=== PATIENT | male | born 1950 | race Caucasian/White ===

== ENCOUNTER → 2020-07-13 16:18 | Outpatient (BNVA) | payer MEDICARE, OTHER, SELFPAY | PROVIDERS: Family Provider Emergency Medicine Emergency Medical Services; Visit Provider Nurse Practitioner | DX: S61.411A Laceration without foreign body of right hand, initial encounter (principal); S60.221A Contusion of right hand, initial encounter; W23.0XXA Caught, crushed, jammed, or pinched between moving objects, initial encounter; Z68.31 Body mass index [BMI] 31.0-31.9, adult; Z71.89 Other specified counseling | CPT/HCPCS: 73130 ==

== ENCOUNTER 2020-11-12 09:44 | Outpatient (CLI) | payer OTHER, SELFPAY ==
--- NOTE | 2020-11-12 10:15 | MR_ITS ---
WS: [id number] MRI LUMBAR SPINE NONCONTRAST HISTORY: LBP, ARTHRITIS COMPARISON: None available. TECHNIQUE: Sagittal and axial multisequence imaging is submitted. 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 Effacement of the CSF at the C5-6 level and the cord appears slightly enlarged. Mild straightening of the normal lumbar lordosis. 2 mm anterolisthesis of C3 and C4. Very mild amount of marrow edema in the pedicles of L4 and L5. Mild disc space narrowing and desiccation throughout. Conus terminates normally at L1. L1-L2: Normal. L2-L3: Normal. L3-L4: Moderate ligamentum flavum hypertrophy and bony hypertrophy encroaching into the thecal sac an d subarticular recesses. Moderate central and bilateral subarticular recess stenosis. More significan t encroachment upon the traversing RIGHT L4 nerve root. L4-L5: Diffuse annular disc bulging with a central moderate-sized disc protrusion. Disc is extruded s lightly cephalad posterior to the L4 vertebral body. mass effect upon the thecal sac. Encroachment in to the thecal sac by the disc, ligamentum flavum and facet arthritis. Moderate amount of fluid in the facet joints bilaterally. Moderate central canal stenosis and moderate to severe bilateral subarticu lar recess stenosis and mild foraminal narrowing. 6 mm cyst associated with the RIGHT lamina extendin g to the ligamentum flavum towards the thecal sac also contributing to the stenosis. L5-S1: Diffuse annular disc bulging and osteophytic ridging. Central and RIGHT foraminal disc protrus ion with moderate ligamentum flavum hypertrophy and facet arthritis. Mild central stenosis. There is mild disc contact on the RIGHT S1 nerve root. There is moderate RIGHT foraminal stenosis due to the d isc disease and facet arthritis. MR/MR lumbar spine wo con* [id number] IMPRESSION: 1. Moderate central and bilateral subarticular recess stenosis at L3-4 most si gnificantly affecting the traversing RIGHT L4 nerve root. 2. Moderate central with moderate to severe bilateral subarticular recess and mild foraminal narrowing at L4-5 due to combination of factors as above includ ing a RIGHT facet cyst. 3. Increase fluid in the facet joints at L4-5 and widening can be seen with sy novitis and instability. 4. Moderate RIGHT foraminal stenosis at L5-S1. Disc protrusions contact the RI GHT L5 and S1 nerve roots.
== END 2020-11-12 09:45 | disposition home or self-care (01) ==
PROVIDERS: Visit Provider Emergency Medicine Emergency Medical Services
DX: M54.50 Low back pain, unspecified (principal); M48.061 Spinal stenosis, lumbar region without neurogenic claudication; M48.07 Spinal stenosis, lumbosacral region; Z01.89 Encounter for other specified special examinations
CPT/HCPCS: 72148

== ENCOUNTER → 2020-12-04 09:57 | Outpatient (BNVA) | payer OTHER, SELFPAY | PROVIDERS: Referring Provider Emergency Medicine Emergency Medical Services; Visit Provider Orthopaedic Surgery | DX: M54.50 Low back pain, unspecified (principal) | CPT/HCPCS: 72110 ==

== ENCOUNTER → 2020-12-24 08:48 | Outpatient (BNVA) | payer OTHER, SELFPAY | PROVIDERS: PCP Emergency Medicine Emergency Medical Services; Referring Provider Orthopaedic Surgery; Visit Provider Anesthesiology Pain Medicine | DX: G89.29 Other chronic pain (principal); M48.062 Spinal stenosis, lumbar region with neurogenic claudication; M79.605 Pain in left leg; Z79.899 Other long term (current) drug therapy | CPT/HCPCS: 99205 ==

== ENCOUNTER → 2021-01-09 12:53 | Outpatient (BNVA) | payer OTHER, SELFPAY | PROVIDERS: PCP Emergency Medicine Emergency Medical Services; Visit Provider Anesthesiology Pain Medicine | DX: G89.29 Other chronic pain (principal); M54.16 Radiculopathy, lumbar region; M48.062 Spinal stenosis, lumbar region with neurogenic claudication | CPT/HCPCS: 64483; 64484; J1100; J3490 ==

== ENCOUNTER → 2021-01-23 12:33 | Outpatient (BNVA) | payer OTHER, SELFPAY | PROVIDERS: PCP Emergency Medicine Emergency Medical Services; Visit Provider Anesthesiology Pain Medicine | DX: G89.29 Other chronic pain (principal); M54.16 Radiculopathy, lumbar region; M48.062 Spinal stenosis, lumbar region with neurogenic claudication | CPT/HCPCS: 64483; 64484; J1100; J3490 ==

== ENCOUNTER → 2021-02-13 10:01 | Outpatient (BNVA) | payer OTHER, SELFPAY | PROVIDERS: PCP Emergency Medicine Emergency Medical Services; Visit Provider Anesthesiology Pain Medicine | DX: M48.062 Spinal stenosis, lumbar region with neurogenic claudication (principal); M47.816 Spondylosis without myelopathy or radiculopathy, lumbar region; M79.605 Pain in left leg | CPT/HCPCS: 99214 ==

== ENCOUNTER → 2021-02-26 13:46 | Outpatient (BNVA) | payer OTHER, SELFPAY | PROVIDERS: PCP Emergency Medicine Emergency Medical Services; Visit Provider Anesthesiology Pain Medicine | DX: M48.062 Spinal stenosis, lumbar region with neurogenic claudication (principal); M47.816 Spondylosis without myelopathy or radiculopathy, lumbar region | CPT/HCPCS: 64493; 64494; 64495; J3490 ==

== ENCOUNTER → 2021-03-12 10:24 | Outpatient (BNVA) | payer OTHER, SELFPAY | PROVIDERS: PCP Emergency Medicine Emergency Medical Services; Visit Provider Anesthesiology Pain Medicine | DX: M48.062 Spinal stenosis, lumbar region with neurogenic claudication (principal); M47.816 Spondylosis without myelopathy or radiculopathy, lumbar region; M79.605 Pain in left leg | CPT/HCPCS: 99213; 99214 ==

== ENCOUNTER → 2021-03-27 14:45 | Outpatient (BNVA) | payer OTHER, SELFPAY | PROVIDERS: PCP Emergency Medicine Emergency Medical Services; Visit Provider Anesthesiology Pain Medicine | DX: M48.062 Spinal stenosis, lumbar region with neurogenic claudication (principal); M47.816 Spondylosis without myelopathy or radiculopathy, lumbar region | CPT/HCPCS: 64635; 64636; J1030 ==

== ENCOUNTER → 2021-04-10 12:50 | Outpatient (BNVA) | payer OTHER, SELFPAY | PROVIDERS: PCP Emergency Medicine Emergency Medical Services; Visit Provider Anesthesiology Pain Medicine | DX: M47.816 Spondylosis without myelopathy or radiculopathy, lumbar region (principal) | CPT/HCPCS: 64635; 64636; J1030 ==

== ENCOUNTER → 2021-04-29 08:46 | Outpatient (BNVA) | payer OTHER, SELFPAY | PROVIDERS: PCP Emergency Medicine Emergency Medical Services; Visit Provider Anesthesiology Pain Medicine | DX: M48.062 Spinal stenosis, lumbar region with neurogenic claudication (principal); M47.816 Spondylosis without myelopathy or radiculopathy, lumbar region; M79.605 Pain in left leg; M25.569 Pain in unspecified knee | CPT/HCPCS: 99213 ==

== ENCOUNTER → 2021-07-22 07:58 | Outpatient (BNVA) | payer OTHER, SELFPAY | PROVIDERS: PCP Emergency Medicine Emergency Medical Services; Visit Provider Anesthesiology Pain Medicine | DX: M48.062 Spinal stenosis, lumbar region with neurogenic claudication (principal); M47.816 Spondylosis without myelopathy or radiculopathy, lumbar region; M79.605 Pain in left leg; M25.561 Pain in right knee; M25.562 Pain in left knee | CPT/HCPCS: 99214 ==

== ENCOUNTER → 2021-10-31 08:36 | Outpatient (BNVA) | payer OTHER, SELFPAY | PROVIDERS: PCP Emergency Medicine Emergency Medical Services; Visit Provider Anesthesiology Pain Medicine | DX: M47.816 Spondylosis without myelopathy or radiculopathy, lumbar region (principal); M48.062 Spinal stenosis, lumbar region with neurogenic claudication; M25.561 Pain in right knee; M25.562 Pain in left knee | CPT/HCPCS: 99213 ==

== ENCOUNTER → 2022-01-23 08:50 | Outpatient (BNVA) | payer OTHER, SELFPAY | PROVIDERS: PCP Emergency Medicine Emergency Medical Services; Visit Provider Anesthesiology Pain Medicine | DX: M48.062 Spinal stenosis, lumbar region with neurogenic claudication (principal); M47.816 Spondylosis without myelopathy or radiculopathy, lumbar region; M79.605 Pain in left leg | CPT/HCPCS: 99213 ==

== ENCOUNTER → 2022-04-17 09:21 | Outpatient (BNVA) | payer OTHER, SELFPAY | PROVIDERS: PCP Emergency Medicine Emergency Medical Services; Visit Provider Anesthesiology Pain Medicine | DX: M48.062 Spinal stenosis, lumbar region with neurogenic claudication (principal); M47.816 Spondylosis without myelopathy or radiculopathy, lumbar region; M79.605 Pain in left leg | CPT/HCPCS: 99213 ==

== ENCOUNTER → 2022-10-16 09:00 | Outpatient (BNVA) | payer OTHER, SELFPAY | PROVIDERS: PCP Emergency Medicine Emergency Medical Services; Visit Provider Anesthesiology Pain Medicine | DX: M48.062 Spinal stenosis, lumbar region with neurogenic claudication (principal); M47.816 Spondylosis without myelopathy or radiculopathy, lumbar region; M50.90 Cervical disc disorder, unspecified, unspecified cervical region; M47.812 Spondylosis without myelopathy or radiculopathy, cervical region | CPT/HCPCS: 99214 ==

== ENCOUNTER 2023-01-09 14:39 | Emergency (ER) | payer OTHER, SELFPAY ==
[2023-01-09 14:56] VITALS: BP 197/112; PULSE 70; RESP 17; TEMP 36.6; O2SAT 98; BMI 31.8
--- NOTE | 2023-01-09 15:53 | W.ED.WOUNDLC ---
Documented by User: Marlee Saravia PA-C 01/09/23 16:02 HPI - Wound/Laceration General: Chief Complaint: Wound/Laceration Stated Complaint: right hand laceration Time Seen by Provider: 01/09/23 15:01 Source: patient Mode of arrival: ambulatory Limitations: no limitations History of Present Illness: 72-year-old male presents to the ER today for right thumb laceration. Patient was using a shop vac and a sharp edge of it caught his right thumb. He reports bleeding is controlled at this time. He has normal range of motion but some decreased sensation in the tip of the thumb. Patient reports last tetanus shot was in 2012. Review of Systems General: Reports: 10 or more systems reviewed and unremarkable except in HPI and below PFSH ED PFSH: Family History Mother Hypertension Father Lung disease LUNG CANCER - SMOKER Social History Smoking and tobacco/nicotine status: never used tobacco/nicotine Second hand smoke exposure: No Alcohol intake: current Alcohol intake frequency: holidays/special occasions only Alcohol type: beer Substance/Drug Use: never Caregiver/support person: Yes Lives independently: Yes Household members: spouse service: Yes branch: [employer] Physical Exam Const: COMMON NORMALS: no acute distress, average body habitus, patient oriented x3, no limitations, healthy appearing, alert and well nourished Resp: COMMON NORMALS: normal respiratory effort EFFORT & INSPECTION: Yes able to speak in complete sentences Cardio: COMMON NORMALS: regular rate and regular rhythm RATE: regular rate RHYTHM: regular rhythm Back/Pelvis: COMMON NORMALS: thoraco-lumbar ROM normal Extremity: NARRATIVE EXTREMITY EXAM: Patient appears to have normal range of motion of the right thumb. No obvious tendon damage. Neuro: COMMON NORMALS: patient oriented x3 SENSORIUM/ORIENTATION: Yes alert Psych: COMMON NORMALS: mental status grossly normal, Normal thought process present and cooperative THOUGHT PROCESS: Normal thought process present Skin: NARRATIVE SKIN EXAM: Patient has a 3 cm linear laceration to the right thumb palmar surface between the joints. Wound is clean of any foreign bodies. No active bleeding. Edges are jagged. Procedures Laceration Laceration 1: Site: hand (thumb) Side (If applicable): right Size (cm): 3 Description: linear Depth: simple, single layer Local Anesthetic: lidocaine 1% Amount of anesthesia used (mL): 4 Pre-repair: wound explored and irrigated extensively Skin layer closed with: other (prolene) Size (cm): 4-0 Number of sutures: 4 Technique: simple, interrupted Course ED course: Patient presented to the ER today for right thumb laceration. This occurred at home while patient was using a shot back. Patient's tetanus status is not up-to-date so we will give him a tetanus shot today patient has normal range of motion. Some decrease sensation which is to be expected. We will close the wound up in ER today. Vital Signs: Vital signs: Vital Signs Temperature 98 F 01/09/23 14:56 Pulse Rate 65 01/09/23 16:22 Respiratory Rate 17 01/09/23 16:22 Blood Pressure 168/102 01/09/23 16:22 Pulse Oximetry 98 01/09/23 16:22 Oxygen Delivery Me thod Room Air 01/09/23 14:56 MDM - Wound/Laceration Medical Decision Making Patient presented to the ER today for right thumb laceration. Wound was not actively bleeding upon arrival. Wound was soaked in saline and Betadine. No foreign bodies identified. Patient has normal range of motion. There is some decreased sensation so we will give this a chance to heal up and if patient has any further complications he can follow-up with his PCP. See laceration note. Wound was closed without any complications. Wound care was discussed. Follow-up with PCP in 7 to 10 days for suture removal. Tdap updated today. Return to the ER with any new or worsening symptoms. Patient verbalized understanding and was in agreement with the treatment plan. No radiology studies performed this visit Critical Care Time Critical Care Time: Critical Care Time: No Discharge Plan Discharge Patient Disposition: Home Clinical Impression: Laceration of right thumb Qualifiers: Encounter type: initial encounter Damage to nail status: without damage Foreign body presence: without foreign body Qualified Code(s): S61.011A - Laceration without foreign body of right thumb without damage to nail, initial encounter Condition: Stable Prescriptions: No Action metoprolol tartrate 25 mg tablet 12.5 mg PO BID bupropion HCl 300 mg tablet extended release 24 hr 300 mg PO QAM guaifenesin 400 mg tablet 400 mg PO BID prazosin 2 mg capsule 2 mg PO ONCE trazodone 100 mg tablet 100 mg PO DAILY finasteride 5 mg tablet 5 mg PO DAILY meloxicam 15 mg tablet 15 mg PO DAILY cyclobenzaprine 10 mg tablet 10 mg PO TID bupivacaine (PF) 0.25 % (2.5 mg/mL) solution 1 ml intra-articular ONCE Qty: 1 0RF gabapentin 300 mg capsule 300 mg PO TID Qty: 90 6RF Discharge Orders: Discharge ED (Routine); Ordered 01/09/23 Ordered By: Marlee Saravia Referrals: aKel Olsen DO [Primary Care Provider] - Discharge Diet: Usual diet Discharge Activity: Limit activity as instructed Patient Instructions: Opioid Safety, Pain Management Activity Restrictions/Additional Instructions: Keep wound clean and dry for 48 hours. Remove dressing and wash with antibacterial soap and water and replace dressing daily. Watch for signs of infection including redness or drainage. Follow-up with PCP in 10 days for suture removal. Return to the ER for any new or worsening symptoms. 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 [employer] Documented by User: Ja Ware DO 01/09/23 16:46 HPI - Wound/Laceration General: Chief Complaint: Wound/Laceration Stated Complaint: right hand laceration Time Seen by Provider: 01/09/23 15:01 PFSH ED PFSH: Family History Mother Hypertension Father Lung disease LUNG CANCER - SMOKER Social History Smoking and tobacco/nicotine status: never used tobacco/nicotine Second hand smoke exposure: No Alcohol intake: current Alcohol intake frequency: holidays/special occasions only Alcohol type: beer Substance/Drug Use: never Caregiver/support person: Yes Lives independently: Yes Household members: spouse service: Yes branch: [employer] Vital Signs: Vital signs: Vital Signs Temperature 98 F 01/09/23 14:56 Pulse Rate 65 01/09/23 16:22 Respiratory Rate 17 01/09/23 16:22 Blood Pressure 168/102 01/09/23 16:22 Pulse Oximetry 98 01/09/23 16:22 Oxygen Delivery Me thod Room Air 01/09/23 14:56 MDM - Wound/Laceration Medical Decision Making Patient presented to the ER today for right thumb laceration. Wound was not actively bleeding upon arrival. Wound was soaked in saline and Betadine. No foreign bodies identified. Patient has normal range of motion. There is some decreased sensation so we will give this a chance to heal up and if patient has any further complications he can follow-up with his PCP. See laceration note. Wound was closed without any complications. Wound care was discussed. Follow-up with PCP in 7 to 10 days for suture removal. Tdap updated today. Return to the ER with any new or worsening symptoms. Patient verbalized understanding and was in agreement with the treatment plan. Chart reviewed and patient discussed with midlevel. Agree with assessment and plan. Discharge Plan Discharge Patient Disposition: Home Clinical Impression: Laceration of right thumb Qualifiers: Encounter type: initial encounter Damage to nail status: without damage Foreign body presence: without foreign body Qualified Code(s): S61.011A - Laceration without foreign body of right thumb without damage to nail, initial encounter Condition: Stable Prescriptions: No Action metoprolol tartrate 25 mg tablet 12.5 mg PO BID bupropion HCl 300 mg tablet extended release 24 hr 300 mg PO QAM guaifenesin 400 mg tablet 400 mg PO BID prazosin 2 mg capsule 2 mg PO ONCE trazodone 100 mg tablet 100 mg PO DAILY finasteride 5 mg tablet 5 mg PO DAILY meloxicam 15 mg tablet 15 mg PO DAILY cyclobenzaprine 10 mg tablet 10 mg PO TID bupivacaine (PF) 0.25 % (2.5 mg/mL) solution 1 ml intra-articular ONCE Qty: 1 0RF gabapentin 300 mg capsule 300 mg PO TID Qty: 90 6RF Discharge Orders: Discharge ED (Routine); Ordered 01/09/23 Ordered By: Marlee Saravia Referrals: Kael Olsen DO [Primary Care Provider] - Discharge Diet: Usual diet Discharge Activity: Limit activity as instructed Patient Instructions: Opioid Safety, Pain Management Activity Restrictions/Additional Instructions: Keep wound clean and dry for 48 hours. Remove dressing and wash with antibacterial soap and water and replace dressing daily. Watch for signs of infection including redness or drainage. Follow-up with PCP in 10 days for suture removal. Return to the ER for any new or worsening symptoms. 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
[2023-01-09] MEDS: lidocaine 1% INJ 10 mL (per mL) INJECTION (16:08)
[2023-01-09] MEDS: tetanus-dipt-pertussis 0.5 mL SDV IM (16:15)
[2023-01-09 16:22] VITALS: BP 168/102; PULSE 65; RESP 17; O2SAT 98
== END 2023-01-09 16:26 | disposition home or self-care (01) ==
PROVIDERS: Emergency Provider Physician Assistant; PCP Emergency Medicine Emergency Medical Services
DX: S61.011A Laceration without foreign body of right thumb without damage to nail, initial encounter (principal); W26.9XXA Contact with unspecified sharp object(s), initial encounter; Z23 Encounter for immunization
CPT/HCPCS: 12002; 90471; 90715; 99283

== ENCOUNTER → 2023-05-13 08:49 | Outpatient (BNVA) | payer OTHER, SELFPAY | PROVIDERS: PCP Emergency Medicine Emergency Medical Services; Visit Provider Anesthesiology Pain Medicine | DX: M48.062 Spinal stenosis, lumbar region with neurogenic claudication (principal); M47.816 Spondylosis without myelopathy or radiculopathy, lumbar region; M50.90 Cervical disc disorder, unspecified, unspecified cervical region; M47.812 Spondylosis without myelopathy or radiculopathy, cervical region | CPT/HCPCS: 99214 ==

== ENCOUNTER 2023-06-04 07:26 | Outpatient (CLI) | payer OTHER, SELFPAY ==
[2023-06-04 08:14] LABS: Testosterone Total 339.3 ng/dL (193-740)
== END 2023-06-04 07:27 | disposition home or self-care (01) ==
PROVIDERS: PCP Emergency Medicine Emergency Medical Services; Visit Provider Chiropractor
DX: E29.1 Testicular hypofunction (principal)
CPT/HCPCS: 36415; 84403

== ENCOUNTER 2024-01-01 12:01 | Outpatient (CLI) | payer OTHER, SELFPAY ==
--- NOTE | 2024-01-01 12:05 | MR_ITS ---
WS: [id number] MRI LEFT SHOULDER HISTORY: L SHOULDER PAIN COMPARISON: None available. TECHNIQUE: Multiplanar sequences of the shoulder joint are submitted. Severe AC joint arthritis. Marked joint space narrowing with fluid. Small osteophytes from the clavic le and acromion. Moderate encroachment upon the supraspinatus tendon. Moderate subacromial impingemen t by hypertrophic osteophyte along the undersurface of the acromion. There is an os acromion. Normal position of the biceps tendon although there is increased fluid in the biceps tendon sheath. Mildly high riding humeral head from the glenoid. Mild glenohumeral joint narrowing. Moderate atrophy of the supraspinatus muscle. Supraspinatus tendon is identified just lateral to the the acromion. No identifiable tendon distally. Findings suspicious for high-grade tear. There is a fl uid-filled gap distally in the expected location of the biceps tendon. Subscapularis and infraspinatu s tendons are intact. No significant muscle atrophy. Edema along several of the muscles of the LEFT u pper extremity including the subscapularis muscle and the biceps. Fluid extends to the coracoid proce ss. Suspect there is an injury to the short head of the biceps tendon. Degenerative changes throughout the labrum. No discrete tears are identified. MR/MR shoulder LT wo con* [id number] IMPRESSION: 1. Severe AC joint arthritis. 2. Os acromion is noted. 3. Full-thickness tear of the distal supraspinatus tendon with minimal retract ion. 4. Large amount of muscle edema predominantly surrounding the short head of th e biceps tendon. The short head of the biceps is not identified extending to th e coracoid process and may be torn completely. Dedicated MRI of the LEFT upper extremity with focus to the proximal and distal biceps tendon may be of benefit . 5. Moderate subacromial impingement by hypertrophic osteophytes. 6. Mild glenohumeral joint space narrowing. 7. Moderate atrophy of the supraspinatus muscle.
== END 2024-01-01 12:02 | disposition home or self-care (01) ==
LOC: RAD 12:02
PROVIDERS: PCP Emergency Medicine Emergency Medical Services; Visit Provider Nurse Practitioner Family
DX: M19.012 Primary osteoarthritis, left shoulder (principal); M75.122 Complete rotator cuff tear or rupture of left shoulder, not specified as traumatic; M75.41 Impingement syndrome of right shoulder; M25.711 Osteophyte, right shoulder; M62.512 Muscle wasting and atrophy, not elsewhere classified, left shoulder
CPT/HCPCS: 73221